=== PATIENT | female | born 1950 | race Caucasian/White ===

== ENCOUNTER 2017-01-14 07:21 | Emergency (ER) | payer MEDICARE, OTHER ==
[~2017-01-14 07:21] MED LIST: ADVIL PO; ALEVE220 MG PO; AMIT10 PO; BEN25 PO; DURA50 TOP; DURA75 TOP; HUMIRA PEN SC; KLONO5 PO; LAMICTAL25 PO; MAXIMUM D3 PO; MEVACOR PO; MOBIC15 MG PO; MULTIVITAMI1 PO; NORV10 PO; OTC NASAL SPRAY; PROZAC PO; SKIN PO; SYN075 PO; [UNRECOGNIZED DRUG - OTHER] PO
== END 2017-01-14 08:00 | disposition home or self-care (01) ==
LOC: ER 07:21
DX: G89.29 Other chronic pain (principal); M54.9 Dorsalgia, unspecified; M25.561 Pain in right knee; M25.562 Pain in left knee; Z79.899 Other long term (current) drug therapy
CPT/HCPCS: 99283